=== PATIENT | female | born 1950 | race Hispanic/Latino ===

== ENCOUNTER 2018-01-06 06:12 | Inpatient (IN) | payer MEDICARE ==
[2018-01-03 09:33] LABS: BASOPHILS % 0.5 % (0.0-1.0); EOSINOPHILS # (AUTO) 0.3 (0.0-0.4); EOSINOPHILS % 3.6 % (0.0-6.0); HEMOGLOBIN 12.1 g/dL (12.0-16.0); LYMPHOCYTES % 27.2 % (18.0-39.1); MEAN CORPUSCULAR HEMOGLOBIN 25.3 pg (28-32); MEAN CORPUSCULAR HGB CONC 32.7 g/dL (31-35); MEAN CORPUSCULAR VOLUME 77.4 fL (81-99); MONOCYTES # (AUTO) 0.5 (0.2-0.8); MONOCYTES % 6.6 % (4.4-11.3); NEUTROPHILS # (AUTO) 4.5 (2.1-6.9); NEUTROPHILS % 61.8 % (38.7-80.0); PLATELET COUNT 218 x10e3/uL (140-360); RED BLOOD COUNT 4.78 x10e6/uL (3.6-5.1); RED CELL DISTRIBUTION WIDTH 13.2 % (11.7-14.4)
--- NOTE | 2018-01-03 09:58 | Diagnostic Imaging Report ---
PROCEDURE:CHEST 2 VIEWS TECHNIQUE:PA and lateral chest INDICATION:Preoperative evaluation for left knee surgery. COMPARISON:None. FINDINGS: Lungs are clear and symmetrically inflated. No pleural effusions. Normal heart size, mediastinal contour, and pulmonary vasculature. Intact skeleton with mild multilevel degenerative disc disease not unexpected for patient age. CONCLUSION: No acute abnormality. Dictated by: Donaldo Herring M.D. on 01/03/2018 at 9:59 Electronically approved by: Donaldo Herring M.D. on 01/03/2018 at 9:59
[2018-01-03 13:22] LABS: ANION GAP 11.7 mmol/L (8-16); BLOOD UREA NITROGEN 18 mg/dL (7-26); BUN/CREATININE RATIO 23 (6-25); CARBON DIOXIDE 28 mmol/L (22-29); CHLORIDE 105 mmol/L (98-107); CREATININE, SERUM 0.79 mg/dL (0.57-1.11); EST GLOMERULAR FILTRATION RATE > 60 ML/MIN (60-); GLUCOSE 142 mg/dL (74-118); POTASSIUM 4.7 mmol/L (3.5-5.1); SODIUM 140 mmol/L (136-145)
[~2018-01-06] VITALS: Ht 154.9 cm; Wt 65.8 kg
[~2018-01-06 06:12] MED LIST: GLIPIZIDE5 MG PO; LISINOPRIL2.5 MG PO; METFORMIN HCL850 MG PO; ROPIVACAINE 246.25 MG, EPINEPHRINE HCL 1:1000 0.5 MG, CLONIDINE HCL 0.08 MG, KETOROLAC ... INJ ONE
--- OUTSIDE RECORDS SUMMARY | 2018-01-06 06:15 | XMS REPORT ---
Author Author [facility] Address Unknown Phone Unavailable Care Team Providers Care Gmat Tutor Name Role Phone MANDO WOODARD Unavailable Unavailable Problems This patient has no known problems. Allergies, Adverse Reactions, Alerts This patient has no known allergies or adverse reactions. Medications This patient has no known medications. Results Test Description Test Time Test Comments Text Results Atomic Results Result Comments CHEST 2 VIEWS [place] [address] Patient Name: SAMUEL MCGINNIS MR #: [id number] : 1950 Age/Sex: 67/F Req #: [id number] Adm Physician: Ordered by: BARBARA ROY MD Report #: [id number] Location: OR Room/Bed: Procedure: [id number] DX/CHEST 2 VIEWS Exam Date: 01/03/18 Exam Time: 939 REPORT STATUS: Signed PROCEDURE: CHEST 2 VIEWS TECHNIQUE: PA and lateral chest INDICATION: Preoperative evaluation for left knee surgery. COMPARISON: None. FINDINGS: Lungs are clear and symmetrically inflated. No pleural effusions. Normal heart size, mediastinal contour, and pulmonary vasculature. Intact skeleton with mild multilevel degenerative disc disease not unexpected for patient age. CONCLUSION: No acute abnormality. Dictated by: Chandana Herring M.D. on 01/03/2018 at 9:59 Electronically approved by: Chandana Herring M.D. on 01/03/2018 at 9:59 Dictated By: CHANDANA HERRING MD 8 Transcribed By: SARA on 01/03/18958 COPY TO: BARBARA ROY III
[2018-01-06] MEDS ORDERED: GABAPENTIN 300 MG CAP ONE (06:44)
[2018-01-06] MEDS ORDERED: CEFAZOLIN SOD 2 GM/D5W 50ML 50 ML IV ONE (06:44)
[2018-01-06] MEDS ORDERED: DEXAMETHASONE SOD PHOS 10 MG/1 ML VIAL ONE (06:44)
[2018-01-06] MEDS ORDERED: CELECOXIB 200 MG CAP ONE (06:44)
[2018-01-06] MEDS ORDERED: BACITRACIN 50,000 UNIT VIAL ONE (06:46)
[2018-01-06] MEDS ORDERED: TRANEXAMIC ACID 1,000 MG/10 ML ML ONE (06:46)
[2018-01-06] MEDS ORDERED: MUPIROCIN 2% OINT 22 GM TUBE ONE (06:46)
[2018-01-06] MEDS ORDERED: CHOLESTEROL MED PO (06:52)
[2018-01-06] MEDS ORDERED: DIPHENHYDRAMINE HCL INJ 50 MG/ML VIAL IM/IV PRN (08:45)
[2018-01-06] MEDS ORDERED: ONDANSETRON HCL INJ 2 MG/ML VIAL IV PRN (08:45)
[2018-01-06] MEDS ORDERED: DOCUSATE SODIUM 100 MG CAP PO PRN (08:45)
[2018-01-06] MEDS ORDERED: KETOROLAC TROMETHAMINE 30 MG/ML VIAL IV PRN (08:45)
[2018-01-06] MEDS ORDERED: ACETAMINOPHEN 650 MG SUPP PR PRN (08:45)
[2018-01-06] MEDS ORDERED: HYDROCODONE/APAP 7.5MG-325MG 1 EA TAB PO PRN (08:45)
[2018-01-06] MEDS ORDERED: HYDROCODONE/APAP 5MG-325MG TAB PO PRN (08:45)
[2018-01-06] MEDS ORDERED: PROMETHAZINE HCL (IM) 25 MG/ML VIAL IM PRN (08:45)
[2018-01-06] MEDS ORDERED: CELECOXIB 100 MG CAP PO SCH (09:00)
[2018-01-06] MEDS: ASPIRIN 325 MG TAB PO SCH ×2 (09:00→16:10)
--- NOTE | 2018-01-06 09:37 | Operative Report ---
DATE OF PROCEDURE: January 06, 2018 ORAL THERAPIST: Edwin Gomez PA-C The patient was brought to the operating room for induction of anesthesia. Throughout this case, my PA's assistance was necessary for retraction of soft tissue and positioning of the extremity. This allows for efficient and technically successful execution of the operation and is considered medically necessary. PREOPERATIVE DIAGNOSIS: Osteoarthritis, left knee. POSTOPERATIVE DIAGNOSIS: Osteoarthritis, left knee. PROCEDURE: Left total knee arthroplasty. INDICATIONS: The patient is a 67-year-old lady who has advanced osteoarthritis of her left knee. She has failed conservative management and would like to proceed with a left total knee replacement. She had a right knee replacement some years ago by another physician. She states she understands the potential risks and benefits and wishes to proceed with the procedure. DESCRIPTION OF PROCEDURE: The patient was brought into the operating room and placed under general anesthetic. She received prophylactic antibiotics, tranexamic and a regional block in the holding area. Her left lower extremity was prepped and draped in a sterile manner. A preoperative time out was performed. The extremity was exsanguinated and a proximal tourniquet was inflated to 300 mmHg. An anterior approach with a medial parapatellar arthrotomy was performed. Clear synovial fluid was removed from the joint. Limited medial dissection was performed due to the valgus deformity. The knee was brought up into flexion with the patella everted. Meniscal remnants and marginal osteophytes were removed. An extramedullary cutting guide was used to resect the proximal tibia. The cut was referenced off of the least affected medial compartment. The tibial baseplate was a size #3. The central fin punch was impacted and attention was directed towards the distal femur. An intramedullary cutting guide was used to resect the distal femur in 6 degrees of valgus and rotation referenced off of a combination of landmarks, including [place]'s line, the epicondylar axis and the posterior condyles. Some posterolateral hypoplasia was taken into account. The femoral component was a size #5. The anterior and posterior cuts were made. Posterior osteophytes were removed. The posterior cruciate ligament was sacrificed. Trial reductions were performed. A 9 mm ultra congruent tibial insert provided optimal soft tissue balancing in both full extension and 90 degrees of flexion. Minimal lateral soft tissue release was necessary to balance the knee. The patella was resurfaced with a 29 mm x 7.5 mm patellar button. The thickness was checked before and after and was right around 21 mm. Patellar tracking was noted to be concentric. The trial implants were removed. The knee was thoroughly irrigated with a Pulsavac. A 100 mL premixed pericapsular PREET injection was placed into the soft tissue. The [employer] Nancy II posterior stabilized knee system was opened up on the back table. A single mix of palacos cement preloaded with antibiotics was used to cement the components into place. Care was taken to remove extravasated cement. The wound was further irrigated while the cement cured. The arthrotomy was closed with interrupted #1 Ethibond stitches. The knee was put through flexion and extension to ensure a secure closure. The skin was carefully closed with subcuticular Vicryl and katerina. A sterile bandage was applied. The patient was extubated and transported to the recovery room in stable condition. Blood loss was minimal. All needle and sponge counts were correct. Job#: [id number] [place]
[2018-01-06] MEDS: CELECOXIB 200 MG CAP PO SCH ×2 (10:00→16:10)
--- NOTE | 2018-01-06 10:48 | Diagnostic Imaging Report ---
PROCEDURE: X-RAY LEFT KNEE, ONE OR TWO VIEWS COMPARISON: None. INDICATIONS:POST OP KNEE LEFT FINDINGS: See conclusion. CONCLUSION: Status post total left knee replacement with surrounding soft tissue swelling, air and katerina consistent with recent surgery. No acute fractures. Dictated by: Enzo Garcia M.D. on 01/06/2018 at 10:49 Electronically approved by: Enzo Garcia M.D. on 01/06/2018 at 10:49
[2018-01-06 10:52] VITALS: BP 156/70
[2018-01-06] MEDS: SODIUM CHLORIDE 0.9% 1000ML 1,000 ML IV SCH ×2 (11:18→18:39)
[2018-01-06] MEDS: ACETAMINOPHEN 1000 MG/100 ML IV SCH ×2 (11:18→17:00)
[2018-01-06] MEDS ORDERED: DEXTROSE 50% SYRINGE 50 ML IV PRN (11:45)
[2018-01-06] MEDS: CEFAZOLIN SOD 1 GM VIAL IV SCH ×2 (13:16→21:00)
[2018-01-06] MEDS ORDERED: CEFAZOLIN SOD 1 GM/NS 50ML 50 ML IV SCH (14:00)
[2018-01-06] MEDS: INSULIN REGULAR, HUMAN 100 UNIT/1 ML 3ML VIAL SQ SCH ×2 (16:30→21:01)
[2018-01-06] MEDS ORDERED: LIDOCAINE 2%/ EPINEPHRINE 20ML MDV ONE (17:16)
[2018-01-06] MEDS ORDERED: ROPIVACAINE 0.5% 5 MG/ML 30 ML SDV ONE (17:16)
[2018-01-06] MEDS ORDERED: MIDAZOLAM HCL 2 MG/2 ML VIAL ONE (17:21)
[2018-01-06] MEDS ORDERED: FENTANYL CITRATE/PF 100MCG/2 ML INJ ONE (17:21)
[2018-01-06] MEDS ORDERED: SEVOFLURANE INHAL SOLN 250 ML PEN BTL ONE (17:56)
[2018-01-06] MEDS ORDERED: ONDANSETRON HCL INJ 2 MG/ML VIAL ONE (17:56)
[2018-01-06] MEDS ORDERED: PROPOFOL IV EMULSION 10 MG/ML 20 ML VIAL ONE (17:56)
[2018-01-06] MEDS ORDERED: LIDOCAINE HCL 2% LOCAL INJ 5 ML SDV VIAL INJ ONE (17:56)
[2018-01-06 20:00] VITALS: BP 147/67
[2018-01-06] MEDS ORDERED: ZOLPIDEM TARTRATE 5 MG TAB PO PRN (21:00)
[2018-01-07] VITALS: BP 167/74
[2018-01-07] MEDS: ACETAMINOPHEN 1000 MG/100 ML IV SCH ×2 (00:31→06:06)
[2018-01-07 01:08] VITALS: BP 167/74
[2018-01-07 04:00] VITALS: BP 161/74
[2018-01-07] MEDS: SODIUM CHLORIDE 0.9% 1000ML 1,000 ML IV SCH (04:39)
[2018-01-07] MEDS: CEFAZOLIN SOD 1 GM VIAL IV SCH (06:06)
[2018-01-07 07:03] LABS: HEMATOCRIT 30.3 % (34.2-44.1); HEMOGLOBIN 10.2 g/dL (12.0-16.0)
[2018-01-07] MEDS: CELECOXIB 200 MG CAP PO SCH (08:08)
[2018-01-07] MEDS: ASPIRIN 325 MG TAB PO SCH (08:08)
[2018-01-07] MEDS: INSULIN REGULAR, HUMAN 100 UNIT/1 ML 3ML VIAL SQ SCH ×2 (08:09→11:38)
[2018-01-07] MEDS ORDERED: ACETAMINOPHEN 1000 MG/100 ML IV PRN (08:45)
--- NOTE | 2018-01-07 09:37 | Operative Report ---
DATE OF PROCEDURE: January 06, 2018 HOME HEALTH SPEECH THERAPIST: Edwin Gomez PA-C The patient was brought to the operating room for induction of anesthesia. Throughout this case, my PA's assistance was necessary for retraction of soft tissue and positioning of the extremity. This allows for efficient and technically successful execution of the operation and is considered medically necessary. PREOPERATIVE DIAGNOSIS: Osteoarthritis, left knee. POSTOPERATIVE DIAGNOSIS: Osteoarthritis, left knee. PROCEDURE: Left total knee arthroplasty. INDICATIONS: The patient is a 67-year-old lady who has advanced arthritis of her left knee. She has failed conservative management and would like to proceed with a left total knee replacement. The risks and benefits of the procedure have been discussed. The patient states she understands and wishes to proceed. DESCRIPTION OF PROCEDURE: The patient was brought to the operating room and placed under general anesthetic. She received prophylactic antibiotics, tranexamic acid and a regional block in the holding area. Her left lower extremity was prepped and draped in a sterile manner. A preoperative time out was performed. The extremity was exsanguinated and a proximal tourniquet was inflated to 300 mmHg. An anterior approach with a medial parapatellar arthrotomy was performed. Clear synovial fluid was removed from the joint. Soft tissue releases were performed to bring the knee up into flexion with the patella everted. The cruciate ligaments or the remnants thereof, were excised. A Walls [employer] Nephew Nancy II posterior stabilized knee system was used throughout the case. Marginal osteophytes and meniscal remnants were removed. An extramedullary cutting guide was used to resect the proximal tibia. The tibial baseplate was a size #4. The central fin punch was impacted, and attention was directed towards the distal femur. An intramedullary cutting guide was used to resect the distal femur in 6 degrees of valgus and rotation referenced off of a combination of landmarks including [place]'s line, the epicondylar axis and the posterior condyles. The femoral component was a size #5. The anterior and posterior cuts were made. Trial reductions were then performed. A 9 mm ultra congruent tibial insert was felt to provide optimal soft tissue balancing in flexion and extension. The patella was resurfaced with a 29 mm x 7.5 mm patellar button. The thickness was checked before and after, and was right at 21 mm. DOCTOR SAID TO CANCEL DICTATION, LENGTH 2:44 Job#: [id number] [place]
[2018-01-07] MEDS ORDERED: ASPIRIN325 MG PO (12:51)
== END 2018-01-07 15:10 | disposition home health service (06) | DRG 470 ==
LOC: OR 06:12 → MED/SURG 09:08
PROVIDERS: ADMIT Specialist; ATTEND Specialist
PROC: 0SRD0J9 Replacement of Left Knee Joint with Synthetic Substitute, Cemented, Open Approach (ICD-10-PCS; principal; 2018-01-06 08:00)
DX: M17.12 Unilateral primary osteoarthritis, left knee (principal); I10 Essential (primary) hypertension; E11.9 Type 2 diabetes mellitus without complications; Z96.651 Presence of right artificial knee joint; D64.9 Anemia, unspecified
CPT/HCPCS: 36415; 71046; 80048; 82948; 85014; 85018; 85025; 86850; 86900; 86920; 93005; 97139; J0171; J0690; J1100; J1885; J2001; J2250; J2405; J2795; J7030

== ENCOUNTER 2018-02-26 08:00 | Outpatient (RCR) | payer MEDICARE ==
[~2018-02-26 08:00] MED LIST changes: +ASPIRIN325 MG PO; +CHOLESTEROL MED PO; -ROPIVACAINE 246.25 MG, EPINEPHRINE HCL 1:1000 0.5 MG, CLONIDINE HCL 0.08 MG, KETOROLAC ... INJ ONE
== END 2018-02-27 ==
LOC: PT 08:00
PROVIDERS: ATTEND Specialist
DX: Z96.652 Presence of left artificial knee joint (principal); Z47.1 Aftercare following joint replacement surgery; M25.562 Pain in left knee; M25.662 Stiffness of left knee, not elsewhere classified; R26.2 Difficulty in walking, not elsewhere classified; M62.81 Muscle weakness (generalized)
CPT/HCPCS: 97010; 97110 ×3; 97161; G8978; G8979

== ENCOUNTER 2018-03-24 13:56 | Outpatient (RCR) | payer MEDICARE | END 2018-03-29 | LOC: PT 13:56 | PROVIDERS: ATTEND Specialist | DX: Z96.652 Presence of left artificial knee joint (principal); Z47.1 Aftercare following joint replacement surgery; M25.562 Pain in left knee; M25.662 Stiffness of left knee, not elsewhere classified; R26.2 Difficulty in walking, not elsewhere classified; M62.81 Muscle weakness (generalized) | CPT/HCPCS: 97010; 97110 ×7; 97140 ×2; G8978; G8979 ==

== ENCOUNTER 2018-04-28 08:00 | Outpatient (RCR) | payer MEDICARE | END 2018-04-29 | LOC: PT 08:00 | PROVIDERS: ATTEND Specialist | DX: Z96.652 Presence of left artificial knee joint (principal); Z47.1 Aftercare following joint replacement surgery; M25.562 Pain in left knee; M25.662 Stiffness of left knee, not elsewhere classified; R26.2 Difficulty in walking, not elsewhere classified; M62.81 Muscle weakness (generalized) | CPT/HCPCS: 97110 ×7; G8978; G8979 ==

== ENCOUNTER 2018-05-16 08:00 | Outpatient (RCR) | payer MEDICARE | END 2018-05-30 | LOC: PT 08:00 | PROVIDERS: ATTEND Specialist | DX: Z96.652 Presence of left artificial knee joint (principal); Z47.1 Aftercare following joint replacement surgery | CPT/HCPCS: 97110 ×4; G8979; G8980 ==